=== PATIENT | male | born 1970 | race Caucasian/White ===

== ENCOUNTER 2019-05-08 08:57 | Emergency (ER) | payer BC ==
--- NOTE | 2019-05-08 09:10 | EDM.PDOC ---
ED HPI GENERAL MEDICAL PROBLEM - General Chief Complaint: Lower Extremity Injury/Pain Stated Complaint: INJURED LT ANKLE Time Seen by Provider: 05/08/19 09:08 - History of Present Illness INITIAL COMMENTS - FREE TEXT/NARRATIVE: HISTORY AND PHYSICAL: History of present illness: Patient's 48-year-old white male presents with concern of left ankle foot pain that occurred when he rolled his ankle yesterday while walking he denies other trauma or concern Review of systems: As per history of present illness and below otherwise all systems reviewed and negative. Past medical history: As per history of present illness and as reviewed below otherwise noncontributory. Surgical history: As per history of present illness and as reviewed below otherwise noncontributory. Social history: No reported history of drug or alcohol abuse. Family history: As per history of present illness and as reviewed below otherwise noncontributory. Physical exam: HEENT: Atraumatic, normocephalic, pupils reactive, negative for conjunctival pallor or scleral icterus, mucous membranes moist, throat clear, neck supple, nontender, trachea midline. Lungs: Clear to auscultation, breath sounds equal bilaterally, chest nontender. Heart: S1S2, regular, negative for clicks, rubs, or JVD. Abdomen: Soft, nondistended, nontender. Negative for masses or hepatosplenomegaly. Negative for costovertebral tenderness. Pelvis: Stable nontender. Genitourinary: Deferred. Rectal: Deferred. Extremities: Patient has tenderness in region of lateral malleolus palpation with small swelling no proximal fibula tenderness CMS in neurovascular exam is unremarkable Neuro: Awake, alert, oriented. Cranial nerves II through XII unremarkable. Cerebellum unremarkable. Motor and sensory unremarkable throughout. Exam nonfocal. Diagnostics: X-ray left ankle/foot Therapeutics: To be determined Impression: #1 acute left ankle injury Definitive disposition and diagnosis as appropriate pending reevaluation and review of above. - Related Data Allergies Allergy/AdvReac Type Severity Reaction Status Date / Time No Known Allergies Allergy Verified 05/08/19 09:10 Home Meds: Home Meds . [No Known Home Meds] 05/08/19 [History] Review of Systems - Review of Systems Review Of Systems: ROS reveals no pertinent complaints other than HPI. ED EXAM, GENERAL - Physical Exam Exam: See Below (See dictation) Course - Vital Signs Last Recorded V/S: Last Vital Signs Temp 35.9 C 05/08/19 09:07 Pulse 84 05/08/19 09:07 Resp 18 05/08/19 09:07 BP 124/93 H 05/08/19 09:13 Pulse Ox 96 05/08/19 09:07 - Orders/Labs/Meds Orders: Active Orders 24 hr Category Date Time Status Ankle Min 3V Lt [CR] Stat Exams 05/08/19 09:09 Taken Foot Comp Min 3V Lt [CR] Stat Exams 05/08/19 09:09 Taken Departure - Departure Time of Disposition: 09:36 Disposition: Home, Self-Care 01 Condition: Good Clinical Impression: Ankle injury - Discharge Information Referrals: PCP,None [Primary Care Provider] - Forms: ED Department Discharge Additional Instructions: The following information is given to patients seen in the emergency department who are being discharged to home. This information is to outline your options for follow-up care. We provide all patients seen in our emergency department with a follow-up referral. The need for follow-up, as well as the timing and circumstances, are variable depending upon the specifics of your emergency department visit. If you don't have a primary care physician on staff, we will provide you with a referral. We always advise you to contact your personal physician following an emergency department visit to inform them of the circumstance of the visit and for follow-up with them and/or the need for any referrals to a consulting specialist. The emergency department will also refer you to a specialist when appropriate. This referral assures that you have the opportunity for followup care with a specialist. All of these measure are taken in an effort to provide you with optimal care, which includes your followup. Under all circumstances we always encourage you to contact your private physician who remains a resource for coordinating your care. When calling for followup care, please make the office aware that this follow-up is from your recent emergency room visit. If for any reason you are refused follow-up, please contact the [facility] emergency department at and asked to speak to the emergency department charge nurse. [facility] [address], [address] [place] [address] Donovan wrap as directed crutches as directed for Motrin/Tylenol as directed follow- up primary medical doctor/orthopedic surgery is needed as discussed - My Orders Last 24 Hours: My Active Orders 05/08/19 09:09 Ankle Min 3V Lt [CR] Stat Foot Comp Min 3V Lt [CR] Stat - Assessment/Plan Last 24 Hours: My Active Orders 05/08/19 09:09 Ankle Min 3V Lt [CR] Stat Foot Comp Min 3V Lt [CR] Stat
--- NOTE | 2019-05-08 09:48 | CR ---
3 VIEWS left foot. INDICATION: Injury. IMPRESSION: No visualized fracture. Alignments anatomic. Joint spaces unremarkable. Dictated by Jamarcus Blackwell MD @ May 08 2019 9:47AM Signed by Dr. Jamarcus Blackwell @ May 08 2019 9:47AM
--- NOTE | 2019-05-08 09:50 | CR ---
3 VIEWS left ankle INDICATION: Injury. IMPRESSION: Osseous structures: There are small avulsion fracture fragments at the tip of the lateral malleolus. Also a small ossicle near the medial malleolus. Difficult to differentiate acute versus previous trauma. No additional fractures. Bony alignment: Normal Soft tissues: There is lateral swelling at the lateral malleolus. Dictated by Jamarcus Blackwell MD @ May 08 2019 9:47AM Signed by Dr. Jamarcus Blackwell @ May 08 2019 9:49AM
== END 2019-05-08 09:48 | disposition home or self-care (01) ==
LOC: MW.ED 08:57
DX: S99.912A Unspecified injury of left ankle, initial encounter (principal); X50.1XXA Overexertion from prolonged static or awkward postures, initial encounter; Y93.01 Activity, walking, marching and hiking
CPT/HCPCS: 73610-26-LT; 73610-LT; 73630-26-LT; 73630-LT; 99282; 99283-25

== ENCOUNTER 2024-01-07 19:26 | Emergency (ER) | payer BC ==
[2024-01-07] MEDS: Oxymetazoline 0.05% Nasal Spray 30 ML Bottle NAS ONE (20:02)
[2024-01-07] MEDS: Tranexamic Acid 1,000 MG in Sodium Chloride 0.9% 100 ML IV ONE (20:03)
[2024-01-07] MEDS: Tranexamic Acid 1,000 MG/10 ML Vial TOP STA (20:03)
[2024-01-07] MEDS: Tranexamic Acid 1,000 MG/10 ML Vial ONE (20:07)
== END 2024-01-07 21:24 | disposition home or self-care (01) ==
LOC: MW.ED 19:26
DX: R04.0 Epistaxis (principal); Z90.49 Acquired absence of other specified parts of digestive tract; Z75.8 Other problems related to medical facilities and other health care
CPT/HCPCS: 30901; 99283; A9270